=== PATIENT | male | born 1980 | race Caucasian/White ===

== ENCOUNTER 2016-04-06 13:38 | Emergency (ER) ==
[2016-04-06] MEDS ORDERED: ASPIRIN PO STA (13:51)
[2016-04-06 14:03] LABS: MANUAL DIFF NEEDED? NO
[2016-04-06 14:06] LABS: BASO% 0.5 % (0.0-0.8); EOS# 0.35 X1000 (0.0-0.7); EOS% 3.3 % (0.0-10.0); HEMATOCRIT 41.7 % (42.0-52.0); HEMOGLOBIN 14.3 g/dL (14.0-18.0); IMM GRAN# 0.02 X1000 (0.0-0.04); IMM GRAN% 0.2 % (0.0-0.5); LYMPH# 2.63 X1000 (1.2-3.4); LYMPH% 24.6 % (20.5-51.1); MCHC 34.3 g/dL (33-37); MCV 90.3 FL (81-99); MONO# 0.95 X1000 (0.11-0.59); MONO% 8.9 % (1.7-9.3); NEUT% 62.5 % (42.2-75.2); PLT 242 X1000 (130-400); RBC 4.62 XMIL (4.7-6.1)
[2016-04-06 14:17] LABS: INR 1.02; PROTIME 10.8 Seconds (9.2-11.7); PTT 26.6 Seconds (22.0-36.0)
--- NOTE | 2016-04-06 14:27 | ED EKG INTERP ---
EKG Interpretation - EKG Time of EKG reading by physician:: 13:51 EKG Read and Signed by:: Sesar Perry EKG Interpretation (*Must complete 3 of following elements*): Normal Rate: 77 Rhythm: NSR Attestation - Scribe Verification/Attestation Scribe:: Emilee Barreto Acting as Scribe for:: Sesar Perry Scribe documention review:: This chart was documented by a scribe and accurately reflects the service the provider performed and the decisions made by the provider.
[2016-04-06 14:28] LABS: AGAP 15; ALBUMIN 4.4 g/dL (3.5-5.0); ALKALINE PHOSPHATASE 77 U/L (32-122); BUN 17 mg/dL (8-22); CALCIUM 9.2 mg/dL (8.8-10.2); CHLORIDE 102 mmol/L (98-107); COSMO 280; GOT 19 U/L (10-34); GPT 18 U/L (10-44); POTASSIUM 3.1 mmol/L (3.5-5.1); SODIUM 140 mmol/L (136-145); TCO2 23 mmol/L (25-35); TOTAL BILIRUBIN 0.94 mg/dL (0.20-1.00); TOTAL PROTEIN 6.9 g/dL (6.3-8.3)
[2016-04-06 14:32] LABS: CK PROFILE 236 U/L (24-204)
--- NOTE | 2016-04-06 14:32 | Diag Imaging Result Document ---
PROCEDURE NAME: CHEST-2 VIEWS - 04/06/2016 TWO-VIEWS OF THE CHEST: FINDINGS: There is no evidence of acute cardiac or pulmonary disease. There are no previous studies. IMPRESSION: No acute disease.
[2016-04-06 14:56] LABS: CK INDEX 1.4 (0.0-2.5); CK-MB 3.36 ng/mL (0.0-5.0)
[2016-04-06] MEDS ORDERED: KLOR-CON PO ONE (16:23)
[2016-04-06] MEDS ORDERED: XANAX PO ONE (16:30)
[2016-04-06] MEDS ORDERED: G.I. COCKTAIL PO ONE (16:30)
--- NOTE | 2016-04-06 16:36 | PROVIDER DOCUMENTATION ---
HPI-Chest Pain - General Chief Complaint: Chest Pain Stated Complaint: CP Time Seen by Provider: 04/06/16 16:22 Allergies/Adverse Reactions: Patient Allergies Allergy/AdvReac Type Severity Reaction Status Date / Time Cephalosporins Allergy Severe ANAPHYLAXIS Verified 04/06/16 18:18 Penicillins Allergy Severe ANAPHYLAXIS Verified 04/06/16 18:18 Home Medications: Home Medication List Medication Instructions Recorded Confirmed Last Taken Type Pantoprazole [Protonix] 40 mg PO DAILY@0700 04/06/16 04/06/16 04/06/16 History Sertraline HCl [Zoloft] 100 mg PO DAILY 04/06/16 04/06/16 04/06/16 History - History of Present Illness-CP Nature of Presenting Problem: Pt was wading in very deep mud. He was out of breath and started having CP and tightness. He denies large PMH other than anxiety and GERD. He states the pain was 4-5/10 it didn't radiate. No N/V Review of Systems - Adult - REVIEW OF SYSTEMS - ADULT Constitutional: reports: no symptoms reported. denies: chills, fever, fatique, night sweats, weight gain Eyes: reports: no symptoms reported. denies: discharge, dry eyes, decreased vision, double vision, redness Ears, Nose, Mouth & Throat: reports: no symptoms reported. denies: ear discharge, ear pain, tinnitus, epistaxis, loose teeth, mouth/dental pain, mouth swelling, hoarseness Cardiovascular: reports: see HPI, chest pain. denies: edema, heart murmur, irregular heart rate, orthopnea, palpitations, poor circulation, syncope Respiratory: reports: see HPI, shortness of breath. denies: chronic cough, dyspnea on exertion, excessive sputum production, hemoptysis, pleurisy, wheezing Gastrointestinal: reports: no symptoms reported. denies: abdominal pain, constipation, diarrhea, frequent heartburn, nausea, poor appetite, rectal bleeding, vomiting Genitourinary: reports: no symptoms reported. denies: dysuria, discharge, frequency, flank pain, incontinence, urinary retention Musculoskeletal: reports: no symptoms reported. denies: bone pain, back pain, joint pain, muscle aches, muscle weakness, neck pain Integumentary: reports: no symptoms reported. denies: hives, hair loss, itching , mole changes, nail changes, rash, skin sores/ulcer, skin thickening Neurological: reports: no symptoms reported. denies: see HPI, ataxia, dizziness /vertigo, headache/migraines, loss of balance, numbness, slurred speech, syncope , tremors Psychiatric: reports: no symptoms reported. denies: anxiety, alcohol/drug dependence, depression, emotional problems, insomnia, panic attacks, suicidal thoughts Endocrine: reports: no symptoms reported. denies: change in skin pigment, excessive sweating, goiter, heat intolerance, increased thirst, polyuria Hematologic/Lymphatic: reports: no symptoms reported. denies: blood clots, easy bruising, low blood count, lymphedema, swollen lymph nodes, transfusions Allergic/Immunologic: reports: no symptoms reported. denies: allergic reactions , allergic rhinitis, asthma, food allergy, frequent infections, hay fever, positive PPD, urticaria All Other Systems: Reviewed and Negative Past History - Adult - PAST MEDICAL HISTORY-ADULT Review of Records: reports: Old Records Reviewed, Nursing Assessment Review, Medications Reviewed, Social history reviewed & non-contributory. Major Childhood Illnesses: reports: denies history Cardiovascular: reports: denies history Respiratory: reports: denies history Gastrointestinal: reports: GERD Obstetrical/Gynecological: reports: denies history Genitourinary: reports: denies history Musculoskeletal: reports: denies history Neurological: reports: denies history Psychiatric: reports: anxiety, depression Endocrine/Immune: reports: denies history Other Conditions: reports: denies history - PRIOR SURGERIES/PROCEDURES Surgical/Procedure History: reports: reviewed, not pertinent - PRIOR HOSPITALIZATIONS Prior Hospitalizations: reports: none - IMMUNIZATION STATUS Childhood Immunizations: See Nurse Assessment Flu Vaccine: See Nurse Assessment - FAMILY HISTORY Family History: reviewed, not pertinent - SOCIAL HISTORY Smoking: denies Substance Use: none/never Alcohol Use Frequency: never Living Situation: family Physical Exam-General - PHYSICAL EXAM-ADULT Initial Vital Signs Reviewed: Yes - CONSTITUTIONAL General Appearance: appears well, alert, no apparent distress - EYES Eyes: PERRL/EOMI, pink conjunctivae - HEAD, EARS, NOSE, MOUTH & THROAT HENMT: normocephalic/atraumatic, moist mucous membranes, normal ENT inspection - NECK Neck: non-tender, full range of motion - RESPIRATORY Respiratory: chest non-tender, lungs clear, normal breath sounds - CARDIOVASCULAR Cardiovascular: normal peripheral pulses, regular rate, rhythm, no edema - GASTROINTESTINAL (ABDOMEN) Abdominal Exam: normal bowel sounds, non tender, soft - GENITOURINARY Male Genitalia: deferred - MUSCULOSKELETAL Back Exam: normal inspection, no CVA tenderness, no vertebral tenderness Extremity: normal range of motion, non-tender, normal gait, normal inspection - SKIN Integumentary: normal color, normal turgor, warm/dry - NEUROLOGIC 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, grossly normal - PSYCHIATRIC Psych/Mental Status: normal thought content, normal thought process, oriented x 3, anxious Progress - PLAN OF CARE/RESULTS Progress/Plan/Lab Results: Laboratory Tests 04/06/16 04/06/16 04/06/16 13:52 13:52 13:52 WBC 10.69 RBC 4.62 L Hgb 14.3 Hct 41.7 L MCV 90.3 MCH 31.0 MCHC 34.3 RDW Std Deviation 13.8 Plt Count 242 MPV 11.0 H Immature Gran % (Auto) 0.2 Neut % (Auto) 62.5 Lymph % (Auto) 24.6 Drew % (Auto) 8.9 Eos % (Auto) 3.3 Baso % (Auto) 0.5 Immature Gran # (Auto) 0.02 Neut # (Auto) 6.69 H Lymph # (Auto) 2.63 Drew # (Auto) 0.95 H Eos # (Auto) 0.35 Baso # (Auto) 0.05 PT INR PTT (Actin FS) D-Dimer 0.19 Sodium 140 Potassium 3.1 L Chloride 102 Carbon Dioxide 23 L Anion Gap 15 BUN 17 Creatinine 1.2 Estimated GFR/1.73 m2 > 60 BUN/Creatinine Ratio 14 Glucose 90 Calculated Osmolality 280 Calcium 9.2 Magnesium 2.0 Total Bilirubin 0.94 AST 19 ALT 18 Alkaline Phosphatase 77 Creatine Kinase 236 H Creatine Kinase Index 1.4 CK-MB (CK-2) 3.36 Troponin T Tvt-V-Okthzgyaumw Pept Total Protein 6.9 Albumin 4.4 Globulin 2.5 Albumin/Globulin Ratio 1.8 04/06/16 04/06/16 04/06/16 13:52 13:52 13:52 WBC RBC Hgb Hct MCV MCH MCHC RDW Std Deviation Plt Count MPV Immature Gran % (Auto) Neut % (Auto) Lymph % (Auto) Drew % (Auto) Eos % (Auto) Baso % (Auto) Immature Gran # (Auto) Neut # (Auto) Lymph # (Auto) Drew # (Auto) Eos # (Auto) Baso # (Auto) PT 10.8 INR 1.02 PTT (Actin FS) 26.6 D-Dimer Sodium Potassium Chloride Carbon Dioxide Anion Gap BUN Creatinine Estimated GFR/1.73 m2 BUN/Creatinine Ratio Glucose Calculated Osmolality Calcium Magnesium Total Bilirubin AST ALT Alkaline Phosphatase Creatine Kinase Creatine Kinase Index CK-MB (CK-2) Troponin T < 0.010 Trr-Z-Dyiridvrjfi Pept 17 Total Protein Albumin Globulin Albumin/Globulin Ratio Orders Category Date Time Status CHEST-2 VIEWS [RAD] Stat Exams 04/06/16 13:51 Completed CBC WITH ELECTRONIC DIFF [HEME] Stat Lab 04/06/16 13:52 Completed CK PROFILE [SP CHEM] Stat Lab 04/06/16 13:52 Completed CK PROFILE [SP CHEM] Stat Lab 04/06/16 16:24 Uncollected COMPREHENSIVE METABOLIC PANEL [CHEM] Stat Lab 04/06/16 13:52 Completed D-DIMER [CHEM] Stat Lab 04/06/16 13:52 Completed MAGNESIUM [CHEM] Stat Lab 04/06/16 13:52 Completed PRO B-NATRIURETIC PEPTIDE Stat Lab 04/06/16 13:52 Completed PROTIME WITH INR [COAG] Stat Lab 04/06/16 13:52 Completed PTT [COAG] Stat Lab 04/06/16 13:52 Completed TROPONIN T Stat Lab 04/06/16 13:52 Completed TROPONIN T Stat Lab 04/06/16 16:24 Uncollected Alprazolam [Xanax] Med 04/06/16 16:30 Once 0.25 mg PO NOW ONE Aspirin Med 04/06/16 13:51 Discontinued 325 mg PO STAT STA Lido/Smith Alk/Al&mg Hydrox [G.i. Cocktail] Med 04/06/16 16:30 Discontinued 30 ml PO NOW ONE Potassium Chloride E.r. [Klor-Con] Med 04/06/16 16:23 Discontinued 40 meq PO NOW ONE EKG [EKG] Stat Ther 04/06/16 13:51 Ordered Vital Signs - 24 hr 04/06/16 13:47 Temperature 98.3 F Pulse Rate 89 Respiratory 18 Rate Blood Pressure 170/109 O2 Sat by Pulse 100 Oximetry - XRAY 1 XRAY Study: Chest XRAY Interpretation: NAD (rad) Departure - Departure Time of Disposition Order: 18:58 DIAGNOSIS: Anxiety, HTN (hypertension) with goal to be determined Disposition: HOME 01 Certified Medical Emergency: Emergent Condition: Good Additional Instructions: follow up with PCP ED Follow Up Instructions: You have been treated by a care provider in the Emergency Department. These instructions are being provided to you so you can have an understanding of how to care for yourself upon discharge. Upon discharge from the Emergency Department, you are responsible for making arrangements for follow-up care by a physician of your choice. Take all prescribed medications as directed. Return to the Emergency Department immediately for any new or worsening symptoms. You may call the Physician Referral phone number at [phone] to obtain a list of Physicians who are taking new patients. Referrals: Angel Fonseca MD [Primary Care Provider] - Attestation - Physician/ LIEN Attestation Patient care was provided by Advanced Practice Provider:: Yes Advanced Practice Provider:: Nighat Angel Advanced Practice Provider documentation review:: The Mid-level provider documentation, treatment plan and medical decision making was reviewed by the physician who agrees with all treatment and medical decision making by the MLP. Physician Attestation - Physician Attestation I, the provider, attest to the following statement:: Nighat Angel Physician documentation Attestation:: This documentation recorded by the scribe accurately reflects the service I personally performed and the decisions made by me.
[2016-04-06] MEDS ORDERED: APRESOLINE IV ONE (18:20)
[2016-04-06 18:50] LABS: CK INDEX 1.4 (0.0-2.5); CK-MB 3.1 ng/mL (0.0-5.0)
[2016-04-06 19:09] VITALS: BP 156/96
--- NOTE | 2016-04-08 07:57 | EKG Report ---
Test Performed on : 04/06/2016 1:51:55 PM Test Reason : Chest Pain Blood Pressure : / mmHG Vent. Rate : 077 BPM Atrial Rate : 077 BPM P-R Int : 176 ms QRS Dur : 090 ms QT Int : 392 ms P-R-T Axes : 057 027 039 degrees QTc Int : 443 ms Normal sinus rhythm. Normal ECG No previous ECGs available Unconfirmed Result
== END 2016-04-06 19:20 | disposition home or self-care (01) ==
LOC: ED 13:38
DX: I10 Essential (primary) hypertension (principal); F41.9 Anxiety disorder, unspecified; R07.89 Other chest pain; R06.02 Shortness of breath; K21.9 Gastro-esophageal reflux disease without esophagitis; F32.9 Major depressive disorder, single episode, unspecified; Z79.899 Other long term (current) drug therapy
CPT/HCPCS: 71020; 80053; 82550; 82553; 83735; 83880; 84484; 85025; 85379; 85610; 85730; 93005; J0360

== ENCOUNTER 2016-08-19 13:46 | Observation (INO) ==
[2016-08-19] MEDS ORDERED: IMODIUM PO ONE (14:00)
--- NOTE | 2016-08-19 14:07 | PROVIDER DOCUMENTATION ---
HPI-Abdominal Pain/GI Problem - General Chief Complaint: Abdominal Pain Stated Complaint: sent by md for further eval Time Seen by Provider: 08/19/16 13:59 Source: patient Allergies/Adverse Reactions: Patient Allergies Allergy/AdvReac Type Severity Reaction Status Date / Time Cephalosporins Allergy Severe ANAPHYLAXIS Verified 04/06/16 18:18 Penicillins Allergy Severe ANAPHYLAXIS Verified 04/06/16 18:18 Home Medications: Home Medication List Medication Instructions Recorded Confirmed Last Taken Type Pantoprazole [Protonix] 40 mg PO DAILY@0700 04/06/16 08/19/16 08/19/16 07:00 History 40 MG Sertraline HCl [Zoloft] 100 mg PO DAILY 04/06/16 08/19/16 08/19/16 07:00 History 100 MG - History of Present Illness-ABD Nature of Presenting Problems: This started3 days ago when he had 1 stool every hour and some vomiting. The vomiting has stopped, but he is still having diarrhea every 2 hours Review of Systems - Adult - REVIEW OF SYSTEMS - ADULT Constitutional: denies: chills, fever Eyes: denies: discharge, blurred vision Ears, Nose, Mouth & Throat: denies: ear pain, sinus problem Cardiovascular: denies: chest pain, heart murmur Gastrointestinal: reports: abdominal pain, diarrhea, nausea, vomiting. denies: constipation Genitourinary: denies: discharge, frequent UTI's Musculoskeletal: denies: bone pain, joint pain Integumentary: denies: hives, mole changes, skin thickening Neurological: reports: no symptoms reported. denies: loss of balance Psychiatric: reports: no symptoms reported Endocrine: denies: goiter, cold intolerance, heat intolerance Hematologic/Lymphatic: denies: low blood count, lymphedema Allergic/Immunologic: denies: eczema, frequent infections Past History - Adult - PAST MEDICAL HISTORY-ADULT Review of Records: reports: Nursing Assessment Review, Medications Reviewed Major Childhood Illnesses: reports: denies history Cardiovascular: reports: denies history Respiratory: reports: denies history Gastrointestinal: reports: GERD Obstetrical/Gynecological: reports: denies history Genitourinary: reports: denies history Musculoskeletal: reports: denies history Neurological: reports: denies history Psychiatric: reports: anxiety, depression Endocrine/Immune: reports: denies history Other Conditions: reports: denies history - PRIOR SURGERIES/PROCEDURES Surgical/Procedure History: reports: reviewed, not pertinent, appendectomy - PRIOR HOSPITALIZATIONS Prior Hospitalizations: reports: none - IMMUNIZATION STATUS Childhood Immunizations: See Nurse Assessment Flu Vaccine: See Nurse Assessment - FAMILY HISTORY Family History: reviewed, not pertinent Physical Exam-General - PHYSICAL EXAM-ADULT Initial Vital Signs Reviewed: Yes - CONSTITUTIONAL General Appearance: appears well, alert, no apparent distress - EYES Eyes: PERRL/EOMI, pink conjunctivae - HEAD, EARS, NOSE, MOUTH & THROAT HENMT: normocephalic/atraumatic, moist mucous membranes, normal ENT inspection - NECK Neck: non-tender, full range of motion, supple, normal inspection - RESPIRATORY Respiratory: chest non-tender, lungs clear, normal breath sounds, no pleuratic chest pain, no respiratory distress, no accessory muscle use - CARDIOVASCULAR Cardiovascular: normal peripheral pulses, regular rate, rhythm, no edema, no gallop, no JVD, no murmur - GASTROINTESTINAL (ABDOMEN) Abdominal Exam: normal bowel sounds, non tender, soft, no organomegaly, no pulsatile mass - LYMPHATIC Lymphatic: no adenopathy - MUSCULOSKELETAL Back Exam: normal inspection, no CVA tenderness, no vertebral tenderness Extremity: normal range of motion, non-tender, normal gait, normal inspection, no pedal edema, no calf tenderness - SKIN Integumentary: normal color, normal turgor - 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, grossly normal - PSYCHIATRIC Psych/Mental Status: normal mood/affect, normal thought content, normal thought process, oriented x 3 Progress - PLAN OF CARE/RESULTS Progress/Plan/Lab Results: Vital Signs - 8 hr 08/19/16 13:55 Temperature 98.5 F Pulse Rate 86 Respiratory Rate 18 Blood Pressure 128/85 O2 Sat by Pulse Oximetry 100 Orders Category Date Time Status Loperamide [Imodium] Med 08/19/16 14:00 Once 4 mg PO NOW ONE Result Diagrams: 08/19/16 14:20 08/19/16 14:20 - REASSESSMENT Reassessment #1 Time Reassessed: 17:30 Status: unchanged Departure - Departure Date of Disposition Decision: 08/19/16 Time of Disposition Decision: 17:30 DIAGNOSIS: Hematochezia Diarrhea Qualifiers: Diarrhea type: unspecified type Qualified Code(s): R19.7 - Diarrhea, unspecified Disposition: ADMITTED INPATIENT 09 Certified Medical Emergency: Emergent Condition: Stable Referrals and Follow-Ups: Angel Fonseca MD [Primary Care Provider] - - Critical Care Note This patient required my direct & personal management of CC.: No
[2016-08-19 14:30] LABS: MANUAL DIFF NEEDED? NO
[2016-08-19 14:37] LABS: EOS# 0.22 X1000 (0.0-0.7); EOS% 2.5 % (0.0-10.0); HEMATOCRIT 43.1 % (42.0-52.0); HEMOGLOBIN 14.6 g/dL (14.0-18.0); LYMPH# 1.84 X1000 (1.2-3.4); LYMPH% 20.6 % (20.5-51.1); MCH 30.2 PG (27-31); MCHC 33.9 g/dL (33-37); MCV 89.2 FL (81-99); MONO# 1.66 X1000 (0.11-0.59); MONO% 18.6 % (1.7-9.3); MPV 11.3 FL (7.4-10.4); NEUT% 57.3 % (42.2-75.2); PLT 213 X1000 (130-400); RBC 4.83 XMIL (4.7-6.1)
[2016-08-19] MEDS ORDERED: LOMOTIL PO ONE (14:48)
[2016-08-19] MEDS ORDERED: NS 1,000 ML IV ONE ×2 (14:49→20:00)
[2016-08-19] MEDS ORDERED: SODIUM CHLORIDE 0.9% INJ ONE (14:49)
[2016-08-19] MEDS ORDERED: PHENERGAN IV ONE (14:49)
[2016-08-19 15:05] LABS: AGAP 13; ALBUMIN 3.9 g/dL (3.5-5.0); ALKALINE PHOSPHATASE 63 U/L (32-122); BUN 9 mg/dL (8-22); CALCIUM 8.9 mg/dL (8.8-10.2); CHLORIDE 98 mmol/L (98-107); COSMO 270; GOT 18 U/L (10-34); GPT 20 U/L (10-44); POTASSIUM 3.3 mmol/L (3.5-5.1); SODIUM 136 mmol/L (136-145); TCO2 25 mmol/L (25-35); TOTAL PROTEIN 7.3 g/dL (6.3-8.3)
[2016-08-19 15:12] LABS: AMYLASE 56 U/L (20-200); LIPASE 73 U/L (13-60)
[2016-08-19] MEDS ORDERED: ZOFRAN IV PRN (17:44)
[2016-08-19] MEDS ORDERED: TYLENOL PO PRN (18:14)
[2016-08-19] MEDS ORDERED: LOMOTIL PO PRN (19:13)
[2016-08-19] MEDS ORDERED: SODIUM CHLORIDE 0.9% INJ PRN (19:14)
[2016-08-19] MEDS ORDERED: PHENERGAN IV PRN (19:14)
[2016-08-19] MEDS: POTASSIUM CHLORIDE 30 MEQ in NS 1,000 ML IV SCH (20:22)
--- NOTE | 2016-08-19 21:11 | HISTORY AND PHYSICAL ---
CHIEF COMPLAINT: Diarrhea and abdominal cramping. HISTORY OF PRESENT ILLNESS: The patient is a 36-year-old white male followed in my medical practice, comes in with a 4-day history of diffuse abdominal cramping and pain and also fever ranging 101 to 103 for about 72 hours. The fever was accompanied by profound chills and sweats. Fever broke about 24 hours ago. He also has had some headache which is improved now as well. Blood pressure has been mildly elevated at one point, but was normal yesterday. He has had some vomiting on 1 or 2 occasions with some nausea. No antibiotic usage in the past 6 months. Did eat some chicken at a local restaurant about 5 days ago and a friend ate with him that day and did not become ill, then his family ate some venison with him and none of the other family members became ill after that either. The patient has a history of some irritable bowel syndrome and had an EGD per Dr. Blevins back in 2007. He has had 2 EGDs in the past, but never had colonoscopy. MEDICATIONS PRIOR TO ADMISSION: Zoloft 100 mg p.o. daily. Protonix 40 mg p.o. daily. Patient also has taken some Imodium, Pepcid, Zantac, Zofran, Phenergan, Tylenol, ibuprofen, Bentyl, Tums, Xanax and Dramamine over the last 3 or 4 days to try to help his symptoms. ALLERGIES: Penicillin and Keflex. PAST MEDICAL HISTORY: 1. Gastroesophageal reflux disease. 2. Obsessive compulsive disorder. 3. Obstructive sleep apnea on CPAP. PAST SURGICAL HISTORY: 1. Appendectomy after ruptured appendix 1997. 2. Sinus surgery 10/11/2011. IMMUNIZATIONS: Tdap given April 2012. FAMILY HISTORY: Notable for father with prostate cancer at age 53. SOCIAL HISTORY: The patient lives in [place]. He is . He has 2 children. 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 Does not drink alcohol. Does not smoke. 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 REVIEW OF SYSTEMS: Negative except as above. Notably he denies any hematochezia or melena. PHYSICAL EXAMINATION: VITAL SIGNS: Weight 220, blood pressure 120/80, pulse 84, temperature 98.7 degrees. GENERAL: Well-developed well-nourished white male, mildly ill-appearing. SKIN: Warm and dry. No rashes. Slightly poor skin turgor. VANNA, EOMI. Sclerae anicteric. HEENT: Oropharynx, no redness. Dry mucous membranes. Prominent. NECK: No lymphadenopathy, thyromegaly, jugular venous distention, bruits. CARDIOVASCULAR: Regular rhythm and rate without murmur. LUNGS: Clear to auscultation. BACK: Nontender. ABDOMEN: Soft. Minimal diffuse tenderness lower quadrants of the abdomen. No mass, organomegaly, rebound or guarding. GENITOURINARY/RECTAL: Deferred. EXTREMITIES: No calf tenderness, cords or edema. NEUROLOGIC: Cranial nerves are intact. No focal deficits identified. We moved the patient over to the ER and did laboratory which showed white count of 8.9, hemoglobin 14.6, hematocrit 43.1, MCV 89, platelets 213,000, neutrophils 57, lymphocytes 21, monocytes 18. Sedimentation rate 35, potassium 3.3, sodium 136, chloride 98, CO2 25, BUN 9, creatinine 1.3, glucose 92, calcium 8.9, total bilirubin 0.9, AST 18, ALT 20, alkaline phosphatase 63, total protein 7.3, albumin 3.9, amylase 56, lipase 73. Stool studies so far shows C. difficile toxin and antigen negative, occult blood positive. Stool culture pending, ova and parasites pending. ASSESSMENT: 1. Nausea, vomiting, diarrhea, rule out gastroenteritis, rule out colitis. 2. Mild dehydration. 3. Mildly elevated lipase. 4. Hypokalemia. 5. Gastroesophageal reflux disease. 6. Obsessive-compulsive disorder. 7. Obstructive sleep apnea. PLAN: At this time we will admit the patient to the hospital. Give him vigorous IV hydration. Continue antiemetics with Zofran. He has received 1 dose of Phenergan in the ER. We will give him Welchol to bulk his stools. Keep him on clear liquids. We will ask Dr. Blevins to see the patient as he may require colonoscopy. We will follow stool cultures to rule out Campylobacter shigella, salmonella and the like. We will follow his electrolytes and labs closely. cc: Angel Fonseca MD
[2016-08-20] MEDS: WELCHOL PO SCH ×4 (01:49→16:31)
[2016-08-20] MEDS: POTASSIUM CHLORIDE 30 MEQ in NS 1,000 ML IV SCH ×3 (02:00→11:30)
[2016-08-20] MEDS ORDERED: PROTONIX PO SCH (07:00)
[2016-08-20 08:45] LABS: MANUAL DIFF NEEDED? NO
[2016-08-20 08:51] LABS: BASO% 0.8 % (0.0-0.8); EOS# 0.28 X1000 (0.0-0.7); EOS% 4.8 % (0.0-10.0); HEMOGLOBIN 13.2 g/dL (14.0-18.0); IMM GRAN# 0.02 X1000 (0.0-0.04); IMM GRAN% 0.3 % (0.0-0.5); LYMPH# 1.86 X1000 (1.2-3.4); LYMPH% 31.6 % (20.5-51.1); MCH 30.8 PG (27-31); MCHC 33.8 g/dL (33-37); MCV 90.9 FL (81-99); MONO# 0.96 X1000 (0.11-0.59); MONO% 16.3 % (1.7-9.3); MPV 10.7 FL (7.4-10.4); NEUT% 46.2 % (42.2-75.2); PLT 216 X1000 (130-400); RBC 4.29 XMIL (4.7-6.1)
[2016-08-20] MEDS ORDERED: ZOLOFT PO SCH (09:00)
[2016-08-20 09:22] LABS: AGAP 10; ALBUMIN 3.4 g/dL (3.5-5.0); ALKALINE PHOSPHATASE 52 U/L (32-122); AMYLASE 73 U/L (20-200); BUN 9 mg/dL (8-22); CALCIUM 8.7 mg/dL (8.8-10.2); CHLORIDE 107 mmol/L (98-107); COSMO 283; GOT 15 U/L (10-34); GPT 14 U/L (10-44); POTASSIUM 4.6 mmol/L (3.5-5.1); SODIUM 143 mmol/L (136-145); TCO2 26 mmol/L (25-35); TOTAL BILIRUBIN 0.79 mg/dL (0.20-1.00); TOTAL PROTEIN 6.2 g/dL (6.3-8.3)
--- NOTE | 2016-08-20 11:12 | PROGRESS NOTE ---
DATE: 08/20/2016 SUBJECTIVE: Patient having less abdominal cramping. No nausea or vomiting. Had 2 watery loose stools this morning, but diarrhea has diminished. OBJECTIVE: Vital signs: Afebrile, pulse 67, respirations 21, blood pressure 120/70, O2 saturation room air 97 to 100%. CV: RRR without murmur. Lungs: CTA. Abdomen: Soft. Minimal diffuse tenderness. No mass or organomegaly. No rebound or guarding. Extremities: No calf tenderness, cords, or edema. LABS: Reviewed from yesterday show an elevated sedimentation rate is 35. White count 8. Creatinine elevated at 1.3. Amylase 56, lipase 73. LFTs normal. Stool studies so far showing C. difficile toxin, antigen negative, occult blood positive. Stool culture is pending. O P pending. ASSESSMENT: 1. Probable acute gastroenteritis. 2. Heme-positive stool. 3. Mild dehydration, improved. 4. Mildly elevated lipase, possibly related to nausea and vomiting. 5. Hypokalemia. 6. Gastroesophageal reflux disease. 7. Obsessive-compulsive disorder. 8. Obstructive sleep apnea. PLAN: At this time, as patient seems to be improving will continue symptomatic care with IV fluids, Phenergan as needed for nausea or vomiting. Continue to bulk his stools with Welchol. Will follow stool cultures. He will try clear liquids and Dr. Blevins is going to see the patient. At this time he may be able to hold off on colonoscopy as patient seems to be doing better. We will follow the cultures. If he tolerates the liquids well, may advance his diet late today and possibly discharge the patient home if he continues to do well. Repeat a set of labs this morning to see how those were doing. cc: Angel Fonseca MD
[2016-08-20 13:57] VITALS: BP 142/73
--- NOTE | 2016-08-20 14:42 | CONSULTATION ---
DATE OF CONSULTATION: 08/20/2016 REASON FOR CONSULTATION: Diarrhea, abdominal pain, nausea, and vomiting. HISTORY OF PRESENT ILLNESS: This is a 36-year-old, white male who reports onset of symptoms last Friday. He reports 1-2 episodes of vomiting with nausea and diarrhea. He reports a fever up to 103. His fever has now resolved. He was seen by Dr. Fonseca yesterday and admitted for further evaluation and treatment. He reports onset of symptoms on Friday. He did report eating out at a local restaurant. No other sick contacts. He also had some venison at home. No other family members have been sick. He reported fever and chills. Yesterday, he reported approximately 10 diarrhea stools. Today, he has had 1 diarrhea stool. Nausea and vomiting have resolved. No reported fever over the last two days. He has not had any recent antibiotic medications. He has not had any recent travel. He has been seen by Dr. Blevins in the past, back in 2007. He has had EGDs but never had a colonoscopy. He has a history of IBS and GERD. He takes pantoprazole and uses Bentyl as needed. He tried Bentyl when his symptoms started with no improvement. PAST MEDICAL HISTORY: GERD, obsessive-compulsive disorder, obstructive sleep apnea and uses a CPAP. PAST SURGICAL HISTORY: Exploratory laparotomy and appendectomy in 1997, sinus surgery in 2011. FAMILY HISTORY: Prostate cancer in his father. SOCIAL HISTORY: No reported tobacco or alcohol use. He is . He has 2 children. 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 ALLERGIES: To cephalosporin and penicillin causing anaphylaxis. HOME MEDICATIONS: Zoloft 100 mg daily, Protonix 40 mg daily, Bentyl as needed. REVIEW OF SYSTEMS: Per HPI. PHYSICAL EXAMINATION: Vital Signs: Temperature 98.6 degrees, pulse 67, respirations 21, blood pressure 120/70. General: Patient is awake and alert, in no acute distress. HEENT: Normocephalic, atraumatic. Pupils equal, round, reactive to light. Sclerae are nonicteric. Respiratory: Lung sounds clear bilaterally. Cardiovascular: Regular rate and rhythm. Abdomen: Soft. Mild tenderness diffusely. Otherwise, positive bowel sounds. Neurologically: Cranial nerves 2-12 grossly intact. Patient is awake, alert, and oriented to person, place, and time. Extremities: No lower extremity edema noted. Pedal pulses present bilaterally. DIAGNOSTIC RESULTS/LABORATORY: Hematology: White count 5.89, hemoglobin 13.2, hematocrit 39, MCV 90.9, platelets 216,000. Chemistry: Sodium 143, potassium 4.6, chloride 107, CO2 26, BUN 9, creatinine 1.1, glucose 94, calcium 8.7. Total bilirubin 0.79, AST 15, ALT 14, alkaline phosphatase 52, amylase 73, lipase 99. ASSESSMENT AND PLAN: 1. Nausea and vomiting have now resolved. 2. Abdominal pain. 3. Diarrhea is improving. Stool studies so far show no enteric pathogens. Clostridium difficile toxin and antigen are negative. Hemoccult stool was positive. Ova and parasites is pending. Watch for final O&P stool results. Otherwise, continue symptomatic treatment and supportive care. Continue intravenous fluids. Continue a liquid diet for now. 4. Depending on his progress, other plans will be made. I have discussed this case with Dr. Blevins. Thank you for this consultation. Dictated by NAVEEN Varghese for Shay Blevins MD cc: NAVEEN Reynoso MD Stephen W. Harbin, MD [facility]
== END 2016-08-20 17:48 | disposition home or self-care (01) ==
LOC: ED 13:46 → 3N 17:51 → INTOOBSV 17:51
PROVIDERS: ADMIT Family Medicine; ATTEND Family Medicine